=== PATIENT | male | born 1965 | race American Indian/Alaskan Native ===

== ENCOUNTER 2021-06-23 13:48 | Emergency (ER) | payer SELFPAY ==
[2021-06-23 18:38] VITALS: BP 142/98
[2021-06-23] MEDS ORDERED: KETOROLAC 30 MG/1 ML INJ IM ONE (18:45)
[2021-06-23] MEDS ORDERED: dexAMETHasone 20 MG/5 ML VIAL IM ONE (18:46)
--- NOTE | 2021-06-23 19:15 | Emergency Department Report ---
Upper Extremity - HPI Chief Complaint: Extremity Injury, Upper Stated Complaint: GOUT IN LFT WRIST Upper Extremity: Left Hand Occurred When: 2 Days Symptoms: Yes Pain with Movement, Yes Limited Range of Movement, No Deformity, No Numbness, No Weakness, No Swelling, No Bruising/Ecchymosis, No Laceration or Abrasion Other History: 55-year-old male presents to the ED complaining of left hand pain . Patient states that he has a history of gout. Patient states that he has been eating a lot of [place] food and spicy food which caused him to have gout flareup. Patient is limited with movement left hand. He normally takes allopurinol. No acute distress noted. No ill appearance noted. ED Review of Systems ROS: Stated complaint: GOUT IN LFT WRIST Other details as noted in HPI Constitutional: denies: chills, fever Eyes: denies: eye pain, eye discharge, vision change ENT: denies: ear pain, throat pain Respiratory: denies: cough, shortness of breath, wheezing Cardiovascular: denies: chest pain, palpitations Endocrine: no symptoms reported Gastrointestinal: denies: abdominal pain, nausea, diarrhea Genitourinary: denies: urgency, dysuria Musculoskeletal: joint swelling. denies: back pain, arthralgia Skin: denies: rash, lesions Neurological: denies: headache, weakness, paresthesias Psychiatric: denies: anxiety, depression Hematological/Lymphatic: denies: easy bleeding, easy bruising ED Past Medical Hx - Past Medical History Previous Medical History?: Yes Hx Hypertension: Yes Additional medical history: GOUT - Surgical History Past Surgical History?: Yes Hx Appendectomy: Yes - Social History Smoking Status: Never Smoker Substance Use Type: None - Medications Home Medications: Home Medications Medication Instructions Recorded Confirmed Last Taken Type HYDROcodone/APAP 5-325 [Beaman 1 each PO Q6HR PRN #14 tablet 11/28/13 06/23/21 Unknown Rx 5/325] hydroCHLOROthiazide 25 mg PO DAILY 11/28/13 06/23/21 11/27/13 09:00 History [Hydrochlorothiazide] amLODIPine 5 mg PO DAILY #30 tab 09/02/15 06/23/21 Unknown Rx Naproxen [Naprosyn] 500 mg PO BID 15 Days #30 tablet 06/23/21 Unknown Rx predniSONE [Deltasone] 50 mg PO QDAY 5 Days #5 tab 06/23/21 Unknown Rx Upper Extremity Exam - Exam General: Vital signs noted. No distress. Alert and acting appropriately. Head and Torso: No HEENT Abnormality, No Neck Tenderness, No Chest/Lungs Abnormality, No Abdominal Tenderness, No Back Tenderness Shoulder Exam: Yes Normal Range of Motion in Shoulder, No Shoulder Tenderness, No Clavicle Tenderness, No Shoulder Deformity, No AC Joint Tenderness Arm Exam: No Arm/Humerus Tenderness, No Arm Deformity Elbow: No Elbow Tenderness, No Normal Range of Motion in Elbow, No Elbow Deformity Forearm: No Forearm Tenderness, No Forearm Deformity, No Pain with Pronation, No Pain with Supination Wrist: Yes Normal ROM in Wrist, No Wrist Tenderness, No Wrist Deformity, No Snuffbox Tenderness, No Pain with Axial Thumb Compression Hand: Yes Normal ROM in Digit(s), No Hand Tenderness, No Hand Deformity, No Digit Tenderness, No Digit(s) Deformity, No Tendon Dysfunction CMS Exam: No Broken Skin, No Normal Distal Pulses, No Normal Capillary Refill, No Normal Distal Sensation ED Course Vital Signs 06/23/21 06/23/21 15:04 18:37 Temperature 98.1 F 98.6 F Pulse Rate 71 81 Respiratory 18 18 Rate Blood Pressure 135/68 Blood Pressure 142/98 [Right] O2 Sat by Pulse 98 100 Oximetry ED Medical Decision Making - Medical Decision Making 55-year-old male presents to the ED complaining of left hand pain. Patient states that he has a history of gout. Patient states that he has been eating a lot of [place] food and spicy food which caused him to have gout flareup. Patient is limited with movement left hand. He normally takes allopurinol. No acute distress noted. No ill appearance noted. Physical examination patient has obvious edema noted to the left hand. Toradol 30 mg and Decadron 10 mg given IM. Rechecked the patient is resting quietly quietly and comfortable and feeling better. I discussed the results of diagnostic study, my clinical impression and the plan for further treatment with the patient. Patient agrees with plan and discharge at this present time. All question addressed. I have given the patient instruction regarding a diagnosis ,expectation ,follow- up and return precaution. I explained to the patient that emergent condition may arise and to return to the ED for new worsen and any new persisting condition. I have explained the importance of following up with the primary care physician or referral physician listed below has instructed. The patient verbalized understanding of discharge instruction. Critical care attestation.: If time is entered above; I have spent that time in minutes in the direct care of this critically ill patient, excluding procedure time. ED Disposition Clinical Impression: Gout attack Qualifiers: Gout site: hand Gout etiology: unspecified cause Laterality: left Qualified Code(s): M10.9 - Gout, unspecified Disposition: 01 HOME / SELF CARE / HOMELESS Is pt being admited?: No Does the pt Need Aspirin: No Condition: Stable Instructions: Low-Purine Eating Plan Additional Instructions: Continue to take allopurinol as previous prescribed Prescriptions: predniSONE [Deltasone] 50 mg PO QDAY 5 Days #5 tab Naproxen [Naprosyn] 500 mg PO BID 15 Days #30 tablet Referrals: PRIMARY CARE, [Primary Care Provider] - 3-5 Days [facility] [Provider Group] - 3-5 Days Forms: Work/School Release Form(ED) Time of Disposition: 19:16
== END 2021-06-23 19:22 | disposition home or self-care (01) ==
LOC: ED 13:48
DX: M10.9 Gout, unspecified (principal); I10 Essential (primary) hypertension; Z90.89 Acquired absence of other organs
CPT/HCPCS: 96372; 99282; J1100; J1885; 99281